=== PATIENT | female | born 1970 | race Caucasian/White ===

== ENCOUNTER 2020-03-17 17:46 | Emergency (ER) | payer BC ==
[2020-03-17 18:01] VITALS: RESP 16; TEMP 99.1
--- NOTE | 2020-03-17 18:45 | ED ---
SOB HPI - General Chief Complaint: Shortness of Breath Stated Complaint: SOB Source: EMS Mode of arrival: EMS Limitations: no limitations - History of Present Illness Initial Comments: 49-year-old female with no past medical history who presents to the emergency department with reported shortness of breath. She states that she was at home cooking dinner when she had sudden onset of inability to breathe. States that she cannot take a deep breath in. Denies any chemical irritants. No new products that could have caused an ALLERGIC reaction. There is no associated chest pain. States that she repetitively Attempting to take a deep breath however she couldn't. Her boyfriend got scared and called EMS. She denies previous history of COPD or asthma. Does not utilize any inhalers. She denies any previous history of cardiac disease. No history of DVT or PE. No lower extremity swelling. No calf pain. No nausea or vomiting. Reports that she feels improved at this time. No recent fevers or chills. No cough. No other alleviating, precipitating or modifying factors - Related Data Home Medications Medication Instructions Recorded Confirmed Cholecalciferol [Vitamin D3 (25 1,000 unit PO DAILY 03/17/20 03/17/20 Mcg = 1000 Iu)] Desvenlafaxine Succinate [Pristiq] 100 mg PO DAILY 03/17/20 03/17/20 traZODone HCL [Desyrel] 50 mg PO HS 03/17/20 03/17/20 Allergies Allergy/AdvReac Type Severity Reaction Status Date / Time morphine Allergy Rash/Hives Verified 03/17/20 19:35 Sulfa (Sulfonamide Allergy Unknown Verified 03/17/20 19:35 Antibiotics) Review of Systems ROS Statement: Those systems with pertinent positive or pertinent negative responses have been documented in the HPI. ROS Other: All systems not noted in ROS Statement are negative. Past Medical History Past Medical History: No Reported History History of Any Multi-Drug Resistant Organisms: None Reported Past Surgical History: Appendectomy, Hysterectomy Past Psychological History: No Psychological Hx Reported Smoking Status: Never smoker Past Alcohol Use History: Occasional Past Drug Use History: None Reported General Exam Limitations: no limitations Course Vital Signs 03/17/20 03/17/20 03/17/20 17:58 18:30 19:00 Temperature 99.1 F Pulse Rate 88 72 65 Respiratory 16 16 Rate Blood Pressure 142/103 128/96 134/98 O2 Sat by Pulse 99 99 98 Oximetry Medical Decision Making - Medical Decision Making Upon arrival the patient is placed in room 15. A thorough history and physical exam was performed. Patient feels much improved upon presentation to the emergency department. Did recommend some laboratory testing. Patient is also sent for chest x-ray. Laboratory studies are unremarkable. Troponin negative. D-dimer negative. Chest x-ray demonstrates normal chest with normal heart size. Patient was reevaluated upon multiple occasions. Great improvement in her blood pressure. Patient continues to feel back to baseline. I did discuss the diagnosis, differential and treatment options. At this time the patient feels comfortable going home. I did offer treatment with an inhaler for bronchospasm however the patient did not feel that this is necessary. I did recommend ALLERGY testing. Patient will follow up with her primary care doctor in 2-4 days. Return to the emergency room for any new or worsening symptoms. Patient was discharged home in stable condition - Lab Data Result diagrams: 03/17/20 18:44 03/17/20 18:44 Lab Results 03/17/20 03/17/20 03/17/20 Range/Units 18:44 18:44 18:44 WBC 7.4 (3.8-10.6) k/uL RBC 5.13 (3.80-5.40) m/uL Hgb 16.4 H (11.4-16.0) gm/dL Hct 48.9 H (34.0-46.0) % MCV 95.2 (80.0-100.0) fL MCH 31.9 (25.0-35.0) pg MCHC 33.5 (31.0-37.0) g/dL RDW 12.3 (11.5-15.5) % Plt Count 318 (150-450) k/uL Neutrophils % 61 % Lymphocytes % 29 % Monocytes % 5 % Eosinophils % 2 % Basophils % 2 % Neutrophils # 4.5 (1.3-7.7) k/uL Lymphocytes # 2.2 (1.0-4.8) k/uL Monocytes # 0.3 (0-1.0) k/uL Eosinophils # 0.1 (0-0.7) k/uL Basophils # 0.1 (0-0.2) k/uL PT 9.8 (9.0-12.0) sec INR 0.9 (<1.2) APTT 24.2 (22.0-30.0) sec D-Dimer 0.23 (<0.60) mg/L FEU Sodium 142 (137-145) mmol/L Potassium 4.0 (3.5-5.1) mmol/L Chloride 109 H (98-107) mmol/L Carbon Dioxide 24 (22-30) mmol/L Anion Gap 9 mmol/L BUN 14 (7-17) mg/dL Creatinine 0.83 (0.52-1.04) mg/dL Est GFR (CKD-EPI)AfAm >90 (>60 ml/min/1.73 sqM) Est GFR (CKD-EPI)NonAf 82 (>60 ml/min/1.73 sqM) Glucose 97 (74-99) mg/dL Calcium 10.3 H (8.4-10.2) mg/dL Total Bilirubin 0.3 (0.2-1.3) mg/dL AST 28 (14-36) U/L ALT 25 (4-34) U/L Alkaline Phosphatase 100 (38-126) U/L Troponin I (0.000-0.034) ng/mL Total Protein 7.3 (6.3-8.2) g/dL Albumin 4.2 (3.5-5.0) g/dL 03/17/20 Range/Units 18:44 WBC (3.8-10.6) k/uL RBC (3.80-5.40) m/uL Hgb (11.4-16.0) gm/dL Hct (34.0-46.0) % MCV (80.0-100.0) fL MCH (25.0-35.0) pg MCHC (31.0-37.0) g/dL RDW (11.5-15.5) % Plt Count (150-450) k/uL Neutrophils % % Lymphocytes % % Monocytes % % Eosinophils % % Basophils % % Neutrophils # (1.3-7.7) k/uL Lymphocytes # (1.0-4.8) k/uL Monocytes # (0-1.0) k/uL Eosinophils # (0-0.7) k/uL Basophils # (0-0.2) k/uL PT (9.0-12.0) sec INR (<1.2) APTT (22.0-30.0) sec D-Dimer (<0.60) mg/L FEU Sodium (137-145) mmol/L Potassium (3.5-5.1) mmol/L Chloride (98-107) mmol/L Carbon Dioxide (22-30) mmol/L Anion Gap mmol/L BUN (7-17) mg/dL Creatinine (0.52-1.04) mg/dL Est GFR (CKD-EPI)AfAm (>60 ml/min/1.73 sqM) Est GFR (CKD-EPI)NonAf (>60 ml/min/1.73 sqM) Glucose (74-99) mg/dL Calcium (8.4-10.2) mg/dL Total Bilirubin (0.2-1.3) mg/dL AST (14-36) U/L ALT (4-34) U/L Alkaline Phosphatase (38-126) U/L Troponin I <0.012 (0.000-0.034) ng/mL Total Protein (6.3-8.2) g/dL Albumin (3.5-5.0) g/dL - EKG Data EKG Comments: EKG demonstrates a normal sinus rhythm with a ventricular rate of 81. NH interval 150. QRS 82. QTC of 436. No acute ST segment elevations. Q wave in lead 3. Disposition Clinical Impression: Bronchospasm Disposition: HOME SELF-CARE Condition: Stable Instructions (If sedation given, give patient instructions): Bronchospasm (ED) Additional Instructions: Please follow-up with primary care doctor in 2-4 days. You may benefit from ALLERGY testing. Return to the emergency room for any new or worsening symptoms Is patient prescribed a controlled substance at d/c from ED?: No Referrals: Jon Rodriguez MD [Primary Care Provider] - 1-2 days Time of Disposition: 20:08
[2020-03-17 18:51] LABS: Basophils # (A) 0.1 k/uL (0-0.2); Basophils % (A) 2 %; Eosinophils # (A) 0.1 k/uL (0-0.7); Eosinophils % (A) 2 %; HCT 48.9 % (34.0-46.0); HGB 16.4 gm/dL (11.4-16.0); Lymphocytes # (A) 2.2 k/uL (1.0-4.8); Lymphocytes % (A) 29 %; MCH 31.9 pg (25.0-35.0); MCHC 33.5 g/dL (31.0-37.0); MCV 95.2 fL (80.0-100.0); Mean Platelet Volume 6.9; Monocytes # (A) 0.3 k/uL (0-1.0); Monocytes % (A) 5 %; Neutrophils # (A) 4.5 k/uL (1.3-7.7); Neutrophils % (A) 61 %; Platelet Count 318 k/uL (150-450); RBC 5.13 m/uL (3.80-5.40); RDW 12.3 % (11.5-15.5); WBC 7.4 k/uL (3.8-10.6)
--- NOTE | 2020-03-17 18:57 | XR ---
EXAMINATION TYPE: XR chest 2V DATE OF EXAM: 03/17/2020 COMPARISON: NONE HISTORY: Difficulty breathing TECHNIQUE: 2 views FINDINGS: Heart and mediastinum are normal. Lungs are clear. Diaphragm is normal. Bony thorax appears normal. IMPRESSION: Normal chest. Normal heart.
[2020-03-17 19:00] LABS: ALT 25 U/L (4-34); AST 28 U/L (14-36); African American GFR (CKD) >90 (>60 ml/min/1.73 sqM); Albumin 4.2 g/dL (3.5-5.0); Alkaline Phosphatase 100 U/L (38-126); Anion Gap 9 mmol/L; Blood Urea Nitrogen 14 mg/dL (7-17); Calcium 10.3 mg/dL (8.4-10.2); Carbon Dioxide 24 mmol/L (22-30); Chloride 109 mmol/L (98-107); Glucose 97 mg/dL (74-99); Non-African American GFR(CKD) 82 (>60 ml/min/1.73 sqM); Sodium 142 mmol/L (137-145); Total Bilirubin 0.3 mg/dL (0.2-1.3); Total Protein 7.3 g/dL (6.3-8.2)
[2020-03-17 19:12] LABS: D-Dimer 0.23 mg/L FEU (<0.60); INR 0.9 (<1.2); Partial Thromboplastin Time 24.2 sec (22.0-30.0); Prothrombin Time 9.8 sec (9.0-12.0)
[2020-03-17 20:31] VITALS: BP 131/96; PULSE 67
== END 2020-03-17 20:29 | disposition home or self-care (01) ==
LOC: EC 17:46
DX: J98.01 Acute bronchospasm (principal); Z79.899 Other long term (current) drug therapy; Z88.5 Allergy status to narcotic agent; Z88.2 Allergy status to sulfonamides
CPT/HCPCS: 36415; 71046; 80053; 84484; 85025; 85379; 85610; 85730; 93005; 99285

== ENCOUNTER → 2023-12-24 | Outpatient (CLI) | payer OTHER ==
--- NOTE | 2023-12-24 11:01 | XR ---
EXAMINATION TYPE: XR foot complete LT DATE OF EXAM: 12/24/2023 COMPARISON: NONE HISTORY: Pain TECHNIQUE: Three views are submitted. FINDINGS: The osseous structures are intact. There is no acute fracture or dislocation. Subtle hallux valgus deformity. Tiny bony density adjacent first MTP is too small to characterize. Calcaneal spur noted. Chronic appearing deformity of the medial malleolus IMPRESSION: 1. No definite acute fracture. Tiny 1 to 2 mm bony density adjacent to the first MTP is too small to characterize correlate with point tenderness.
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
== END | disposition home or self-care (01) ==
LOC: RADXRMAIN 09:59
PROVIDERS: ATTEND Emergency Medicine
DX: S90.02XA Contusion of left ankle, initial encounter (principal); S93.402A Sprain of unspecified ligament of left ankle, initial encounter; S93.602A Unspecified sprain of left foot, initial encounter